=== PATIENT | female | born 1985 | race Caucasian/White ===

== ENCOUNTER 2025-08-07 02:02 | Emergency (ER) | payer OTHER ==
[2025-08-07] MEDS ORDERED: diphenhydrAMINE 25 MG CAP ONE (04:01)
[2025-08-07] MEDS ORDERED: Dexamethasone 10 MG/ML VIAL ONE (04:01)
== END 2025-08-07 04:59 | disposition home or self-care (01) ==
LOC: ERS 02:02
DX: R59.1 Generalized enlarged lymph nodes (principal)
CPT/HCPCS: 87081; 87428; 87430; 96372; 99283; J1100